=== PATIENT | male | born 1985 | race Caucasian/White ===

== ENCOUNTER 2025-03-28 10:58 | Emergency (ER) | payer MEDICAID, SELFPAY ==
[2025-03-28 10:59] VITALS: BMI 33.3
[2025-03-28 11:09] VITALS: BP 162/112; BP 165/111; PULSE 89; RESP 17; TEMP 36.6; O2SAT 95
--- NOTE | 2025-03-28 11:16 | XR_ITS ---
EXAMINATION: PA lateral chest 2 views TECHNIQUE: Upright PA and lateral chest 2 views Date and time: March 28, 2025, 1257 hours INDICATIONS: Coughing up blood beginning 2 days ago with shortness of breath. FINDINGS: Normal heart size Lungs are clear. The osseous structures are intact IMPRESSION: No active disease
--- NOTE | 2025-03-28 11:16 | EKG_ITS ---
[facility] Test Date: 2025-03-28 Pat Name: GARY MONAHAN Department: Room: - Gender: Male [employer]: : 1985 Requested By: Ridge Greer (LEAD VULCANIZING OPERATOR) Order Number: [id number] Reading MD: Ridge Greer (LEAD VULCANIZING OPERATOR) Measurements Intervals [place] Rate: 72 P: 42 OR: 155 QRS: 9 QRSD: 85 T: 28 QT: 397 QTc: 435 Interpretive Statements SINUS RHYTHM NONSPECIFIC T-WAVE ABNORMALITY Compared to ECG 03/24/2023 08:29:18 Sinus bradycardia no longer present T-wave abnormality still present /store/S0/[id number]/[id number].pdf
--- NOTE | 2025-03-28 11:16 | PD.EDRME ---
Rapid Medical Screening Exam RME Arrival date/time: 03/28/25 10:58 39-year-old male presents to the emergency department today for complaints of abdominal pain and headache as well as vomiting blood Chief Complaint: GI Bleed Vital signs: Vital Signs Temperature 97.9 F 03/28/25 11:09 Pulse Rate 89 03/28/25 11:09 Respiratory Rate 17 03/28/25 11:09 Blood Pressure 165/111 H 03/28/25 11:09 Pulse Oximetry (%) 95 03/28/25 11:09 Oxygen Delivery Method Room Air 03/28/25 11:09
[2025-03-28 11:57] LABS: Basophils # (Auto) 0.1 Thou/mm3 (0.0-0.2); Basophils % (Auto) 1 % (0-2.5); Eosinophils # (Auto) 0.4 Thou/mm3 (0.0-0.5); Eosinophils % (Auto) 3 % (0-10); Hematocrit 44.6 % (41.0-53.0); Hemoglobin 15.4 g/dL (13.5-16.0); Immature Granulocytes Auto 0.04 Thou/mm3 (0.00-0.00); Lymphocytes # (Auto) 3.1 Thou/mm3 (1.0-4.8); Lymphocytes % (Auto) 26 % (10-50); Mean Corpuscular HGB Conc 34.5 g/dl (31.0-37.0); Mean Corpuscular Hemoglobin 30.4 pg (25.0-35.0); Mean Corpuscular Volume 88 fL (80-100); Monocytes # (Auto) 0.9 Thou/mm3 (0.0-0.8); Monocytes % (Auto) 7 % (0-12); Neutrophils # (Auto) 7.4 Thou/mm3 (1.8-7.7); Neutrophils % (Auto) 62 % (37-80); Nucleated Red Blood Cell # 0.00 Thou/mm3 (0.00-0.00); Nucleated Red Blood Cell % 0 /100 WBC (0); Platelet Count 308 Thou/mm3 (140-440); RDW Standard Deviation 39.1 fL (35.1-43.9); Red Blood Count 5.06 Miln/mm3 (4.50-5.90); White Blood Count 11.9 Thou/mm3 (3.8-10.6)
[2025-03-28 12:13] LABS: Alanine Aminotransferase 28 U/L (10-49); Albumin, Serum 4.7 gm/dL (3.5-5.0); Albumin/Globulin Ratio 2.0 (1.2-2.2); Alkaline Phosphatase 67 U/L (46-116); Anion Gap 7 (7-16); Aspartate Amino Transferase 22 U/L (0-34); BUN/Creatinine Ratio 10 Ratio (12-20); Bilirubin,Total 0.5 mg/dL (0.3-1.2); Blood Urea Nitrogen 9 mg/dL (9-23); Calcium 9.6 mg/dL (8.3-10.6); Calcium (Corrected) 9.6 mg/dL (8.5-10.1); Carbon Dioxide 28.5 mMol/L (20.0-31.0); Chloride 106 mMol/L (98-107); Creatinine (Component) 0.9 mg/dL (0.6-1.3); Estimated Creatinine Clearance 112.9 mL/min (>60); Globulin 2.4 gm/dL (2.3-3.5); Glucose 102 mg/dL (74-106); Lipase 43 U/L (12-53); Osmolality,Calculated 279 (275-295); Potassium 4.6 mMol/L (3.4-5.1); Sodium 141 mMol/L (136-145); Total Protein 7.1 gm/dL (5.7-8.2); Troponin I < 0.002 ng/mL (0.0-0.045); eGFR > 60 See Note
[2025-03-28 12:21] LABS: INR 1.0 (0.9-1.3); Partial Thromboplastin Time 26.2 Seconds (22.0-36.0); Prothrombin Time 10.2 Seconds (9.0-12.2)
--- NOTE | 2025-03-28 15:39 | XR_ITS ---
Examination: Abdomen sonogram, Limited Date and time of exam: March 28, 2025, 1559 hours INDICATIONS: Upper abdominal pain vomiting beginning 3 days ago Technique: Real-time philippe scale transabdominal sonographic images of the upper abdomen obtained. Findings: Multiple gallstones Normal gallbladder wall 0.2 cm Normal common bile duct 0.3 cm Pancreatic head 2.5 cm Liver 19.2 cm fatty infiltration no liver lesions Normal hepatopetal portal venous flow Patent IVC IMPRESSION: Cholelithiasis. Moderate hepatomegaly fatty infiltration
--- NOTE | 2025-03-28 15:39 | XR_ITS ---
Examination: CT abdomen with intravenous contrast CT pelvis with intravenous contrast 2-D coronal reconstructions 2-D sagittal reconstructions Date and time of exam: March 28, 2025, 1734 hours COMPARISON: May 02, 2023 INDICATIONS: Vomiting blood epigastric pain and nausea this week beginning 3 days ago. CTDI: vol (mGy) 9.81 DLP: (mGycm) 600 Technique: Multiple axial sections of the abdomen and pelvis have been obtained. 64 slice high-resolution scanner used. 3 mm axial sections have been obtained, post intravenous injection 60 cc [id number] 2-D sagittal, coronal reconstructions obtained. Low dose protocols were performed. One or more of the following dose reduction techniques were used; automated exposure control, adjustment of the mA and/or KV according to patient size, use of iterative reconstruction technique. Findings: Gastric mucosa is thickened No focal liver or splenic lesions Gallstones, no gallbladder wall thickening No pancreatic or adrenal mass No renal or ureteral calculi, no hydronephrosis Aorta normal size Normal appendix Colonic diverticulosis, no diverticulitis Urinary bladder intact No prostatomegaly Osseous structures are intact IMPRESSION: Gastritis pattern Normal appendix Colonic diverticulosis, no diverticulitis
--- NOTE | 2025-03-28 15:43 | EDNOTE_ITS ---
<Statement entered by Lianet Duggan MD - 04/09/25 14:16> As co-signing physician, I was present and available for consult prn. I concur with the plan and care as documented by the midlevel provider. ED Abdominal Pain RME/HPI General Chief Complaint: GI Bleed Stated complaint: VOMITING BLOOD AND NAUSEA Time seen by provider: 03/28/25 14:51 Arrival date/time: 03/28/25 10:58 RME / HPI RME / HPI narrative: 39-year-old male patient with significant history of gallstone, was diagnosed 2 years ago, never had surgery no follow-up, came in for evaluation regarding epigastric pain. Onset of symptoms since 2 days ago as worsening epigastric pain, last Wednesday patient was being vomiting blood-streaked vomitus. Patient also complained of headache body aches worsening abdominal pain severity moderate. Denies any fever denies any other complaints abdomen surgery include hernia repair. Related Data Home Medications ?Medication ?Instructions ?Recorded ?Confirmed omeprazole 40 mg capsule,delayed 40 mg PO QDAY 3 03/25/23 release Previous Rx's ?Medication ?Instructions ?Recorded docusate sodium 100 mg capsule 100 mg PO BID #40 caps 03/25/23 (Colace) hydrocodone 5 mg-acetaminophen 325 1 tab PO Q6H PRN pa in (scale score 03/25/23 mg tablet 7-10) #15 tabs ibuprofen 600 mg tablet 600 mg PO Q8H PRN pain (scal e 03/25/23 score 4-6) #15 tabs hydrocodone 5 mg-acetaminophen 325 1 tab PO BID PRN pa in #10 tabs 04/28/23 mg tablet dicyclomine 20 mg tablet 20 mg PO QID PRN abdominal p ain 03/28/25 #20 tabs ondansetron HCl 4 mg tablet 4 mg PO Q8H PRN nausea and 03/28/25 vomiting #20 tabs pantoprazole 40 mg tablet,delayed 40 mg PO QDAY #20 ta bs 03/28/25 release (Protonix) Allergies Allergy/AdvReac Type Severity Reaction Status Date / Time No Known Allergies Allergy Verified 03/28/25 11:03 Review of Systems Review of Systems Narrative Review of Systems: Review of system reviewed and within normal limits except mentioned in HPI ED Exam Narrative Physical exam: VITAL SIGNS: Reviewed. GENERAL APPEARANCE: Alert and interactive, follows commands, no acute distress, HEAD AND FACE: Non-traumatic. ENT: PERRL, pink conjunctivitis, eyelid no trauma, Mucous membrane moist. NECK: Supple, nontender, no nuchal rigidity. CHEST: No tenderness, no crepitus, no paradoxical movement, no retractions. LUNGS: Clear, well ventilated, symmetric, no rales, no wheezing, no ronchi, no stridor, good breath sounds bilaterally. HEART: Regular rate, regular rhythm, no murmur, no gallops. ABDOMEN: Soft, positive bowel sounds, nondistended, no guarding, epigastric tenderness, no rebound, no masses, RECTAL: Deferred. GENITAL: Deferred. NEUROLOGICAL: Gross motor function intact sensory function intact, Appropriate for age. MUSCULOSKELETAL: low back nontender, full range of motion. EXTREMITIES: Nontender, full range of motion. SKIN: Color pink, dry, no rash, no lacerations, no abrasions, no contusions. LYMPHATICS: Deferred. Course Quality Measures none Orders Category Date Time Status CT Screening NOW Care 03/28/25 15:40 Active EKG (ED ONLY) *Do not use* NOW Care 03/28/25 11:[address] abdomen pelvis w con Stat Exams 03/28/25 15:39 Completed EKG (ED Only) Stat Exams 03/28/25 11:16 Draft US gall bladder Stat Exams 03/28/25 15:39 Completed XR chest 2V Stat Exams 03/28/25 11:16 Completed CBC Stat Lab 03/28/25 11:40 Completed Comprehensive Metabolic Panel Stat Lab 03/28/25 11:40 Completed Lipase Stat Lab 03/28/25 11:40 Completed PT [Prothrombin Time with INR] Stat Lab 03/28/25 11:40 Completed PTT [Partial Thromboplastin Time] Stat Lab 03/28/25 11:40 Completed Troponin I Stat Lab 03/28/25 11:40 Completed Famotidine Inj [Pepcid Inj] Med 03/28/25 15:39 Discontinued 20 mg IVP X1 ONE Morphine* Inj Med 03/28/25 15:41 Discontinued 4 mg IVP X1 ONE Ondansetron Inj [Zofran Inj] Med 03/28/25 15:39 Discontinued 4 mg IVP X1 ONE Ringers Lactated 1000 ml [Lactated Ringers] 1,000 ml Med 03/28/25 15:40 Discontinued IV 999 mls/hr Vital Signs Vital signs: Vital Signs Temperature 97.9 F 03/28/25 11:09 Pulse Rate 89 03/28/25 11:09 Respiratory Rate 17 03/28/25 11:09 Blood Pressure 165/111 H 03/28/25 11:09 Pulse Oximetry (%) 95 03/28/25 11:09 Oxygen Delivery Method Room Air 03/28/25 11:09 Abdominal Pain [facility] Narrative [facility] Narrative:: 39-year-old male patient with significant history of gallstone, was diagnosed 2 years ago, never had surgery no follow-up, came in for evaluation regarding epigastric pain. Onset of symptoms since 2 days ago as worsening epigastric pain, last Wednesday patient was being vomiting blood-streaked vomitus. Patient also complained of headache body aches worsening abdominal pain severity moderate. Denies any fever denies any other complaints abdomen surgery include hernia repair. EKG showed sinus rhythm, ventricular rate of 72 bpm, AK interval 155 MS, no ST segment elevation or depression noted. Ultrasound of the gallbladder showed cholelithiasis with no sign of acute cholecystitis. CT scan of the abdomen and pelvis showed gastritis otherwise unremarkable. The rest of the labs came back unremarkable. Patient was given IV fluids, morphine, Pepcid, Zofran with complete resolution of symptoms. Plan of care discussed with the patient family and advised him to follow-up with PCP and for referral to general surgery. Patient agrees with Patient data External records reviewed:: None Clinical information provided by:: patient Social determinants that could affect healthcare access:: none Patient has the following chronic illnesses:: None How is presenting disease/condition affected by chronic disease/condition?: no chronic disease Evaluation data The following diagnostics were reviewed and interpreted by me:: lab results, radiology exam(s) and EKG tracing(s) Lab and/or radiology exams considered but not ordered:: None Interpretation Summary: See [facility] Medications / Prescriptions Medications or Prescriptions considered but not ordered:: None Medication administrations:: Medication Administration History Discontinued Medications Famotidine (Famotidine Inj 10 Mg/Ml Vial 2 Ml) 20 mg IVP X1 ONE Stop: 03/28/25 15:40 Last Admin: 03/28/25 17:22 Dose: 20 mg Documented By: MICHELLE Lactated Ringer's (Lactated Ringers) 1,000 mls @ 999 mls/hr IV .Q1H1M ONE Stop: 03/28/25 16:40 Last Admin: 03/28/25 17:24 Dose: 999 mls/hr Documented By: MICHELLE Morphine Sulfate (Morphine Sulf Inj 4 Mg/Ml Vial) 4 mg IVP X1 ONE Stop: 03/28/25 15:42 Last Admin: 03/28/25 17:24 Dose: 4 mg Documented By: MICHELLE Ondansetron HCl (Ondansetron Inj 2 Mg/Ml Inj 2 Ml) 4 mg IVP X1 ONE; Protocol Stop: 03/28/25 15:40 Last Admin: 03/28/25 17:23 Dose: 4 mg Documented By: MICHELLE See MDM Consultations Consultation(s) initiated? (list below): No Diagnosis Differential diagnosis abdominal pain: abdominal pain, gastroenteritis and other (Gastritis, gallstone) Most likely diagnosis given after review of the tests above:: Gallstone, gastritis Admission Indicated Admission indicated?: not indicated Admission Request Was there a request for admission?: No Disposition Plan Disposition Plan: Discharge Discharge Attestation Discharge Attestation: The patient and all family members were given an opportunity to ask questions and understood the discharge instructions. Discharge instructions specifically effects, indications for sooner follow up or return to the emergency department, and the expected course of current diagnosis. Patient condition: Stable Discharge Plan Plan Patient Disposition: HOME (Self Care) Discharge Disposition comment: stable Prescriptions/Referrals Prescriptions/Med Rec: New pantoprazole [Protonix] 40 mg tablet,delayed release (DR/EC) 40 mg PO QDAY Qty: 20 0RF ondansetron HCl 4 mg tablet 4 mg PO Q8H PRN (Reason: nausea and vomiting) Qty: 20 0RF dicyclomine 20 mg tablet 20 mg PO QID PRN (Reason: abdominal pain) Qty: 20 0RF No Action omeprazole 40 mg capsule,delayed release(DR/EC) 40 mg PO QDAY Patient Comments: TAKE ONE CAPSULE BY MOUTH EVERY MORNING 30 MINUTES BEFORE BREAKFAST GASTRIC ACIDITY HEARTBURN docusate sodium [Colace] 100 mg capsule 100 mg PO BID Qty: 40 0RF ibuprofen 600 mg tablet 600 mg PO Q8H PRN (Reason: pain (scale score 4-6)) Qty: 15 0RF hydrocodone-acetaminophen 5-325 mg tablet 1 tab PO Q6H MDD 4 PRN (Reason: pain (scale score 7-10)) Qty: 15 0RF hydrocodone-acetaminophen 5-325 mg tablet 1 tab PO BID MDD 10 PRN (Reason: pain) Qty: 10 0RF Referrals: No Primary/Family,Physician [Primary Care Provider] - In 1 week Problem List Clinical Impression: Gastritis, Cholelithiasis Patient/Caregiver Discharge Instructions Discharge Activity: activity as tolerated Education Materials: Treating Gallstones Additional Instructions: Thank you for the opportunity for serving you today. You are stable for disch arged . You are advised to: Follow-up with your PCP in 1 to 2 days and asked for referral to general surgery regarding your gallstone Return to ED for worsening of symptoms Increase oral fluids Take medication as prescribed Please avoid eating fatty, greasy, fried food Print Language: Turkish Stand Alone Forms: Elizabeth Award Info., Patient Portal Info Letter PA/SEAT COVERER Supervising Physician PA/EMERALD Supervising Physician: MD Reva
[2025-03-28 16:26] VITALS: BP 141/97; PULSE 61; RESP 18; TEMP 36.7; O2SAT 98
[2025-03-28] MEDS: FAMOTIDINE INJ 10 MG/ML VIAL 2 ML 20 MG IVP (17:22)
[2025-03-28] MEDS: ONDANSETRON INJ 2 MG/ML INJ 2 ML 4 MG IVP (17:23)
[2025-03-28] MEDS: MORPHINE SULF INJ 4 MG/ML VIAL IVP (17:24)
[2025-03-28] MEDS: RINGERS LACTATED 1000 ML 1,000 ML 999 ML IV (17:24)
[2025-03-28 18:21] VITALS: BP 143/95; PULSE 62; RESP 17; TEMP 36.5; O2SAT 97
== END 2025-03-28 18:35 | disposition home or self-care (01) ==
PROVIDERS: Nurse Practitioner Primary Care; Emergency Provider Emergency Medicine
DX: K29.71 Gastritis, unspecified, with bleeding (principal); K80.20 Calculus of gallbladder without cholecystitis without obstruction; R94.31 Abnormal electrocardiogram [ECG] [EKG]; R06.02 Shortness of breath
CPT/HCPCS: 36415; 71046; 74177; 76705; 80053; 83690; 84484; 85025; 85610; 85730; 93005; 96361; 96374; 96375; 99284; A4649; J2270; J2405; J3490; J7120; Q9967